=== PATIENT | female | born 1980 | race African-American/Black ===

== ENCOUNTER 2018-05-08 09:58 | Day surgery (SDC) | payer OTHER ==
[~2018-05-08] VITALS: Ht 160 cm; Wt 69.8 kg
[2018-05-08 10:32] VITALS: BP 126/68
[2018-05-08 11:00] LABS: BASOPHIL % 0.9 % (0-2); CALCIUM 8.8 mg/dL (8.5-10.1); CARBON DIOXIDE 28.6 mmol/L (21-32); CHLORIDE SERUM 102 mmol/L (98-107); CREATININE SERUM 0.8 mg/dL (0.6-1.0); GFR1 > 60 mL/min; GLUCOSE SERUM 97 mg/dL (74-106); PLATELET COUNT 242 x10^3mcL (130-400); POTASSIUM SERUM 3.3 mmol/L (3.5-5.1); SODIUM SERUM 132 mmol/L (136-145)
[2018-05-08 11:01] LABS: RED CELL DISTRIBUTION WIDTH 14.6 % (11.5-14.5)
[2018-05-08 15:11] VITALS: BP 105/72
== END 2018-05-08 15:00 | disposition home or self-care (01) ==
LOC: DS 09:58 → OR 12:30 → DS 15:00
PROVIDERS: Obstetrics & Gynecology
PROC: 10D17ZZ Extraction of Products of Conception, Retained, Via Natural or Artificial Opening (ICD-10-PCS; principal; 2018-05-08 12:30)
DX: O02.1 Missed abortion (principal)
CPT/HCPCS: C1758; J0690; J2250; J2704; J3010; J3490; J7030